=== PATIENT | male | born 1945 | race Caucasian/White ===

== ENCOUNTER 2022-07-02 11:13 | Emergency (ER) | payer MEDICARE, SELFPAY ==
[2022-07-02 11:22] VITALS: BP 131/67; PULSE 95; RESP 16; TEMP 36.3; O2SAT 98
--- NOTE | 2022-07-02 11:23 | ED.WOUNDLAC ---
HPI - Wound/Laceration General Chief Complaint: Wound/Laceration Stated Complaint: Laceration to Finger Time Seen by Provider: 07/02/22 11:28 Source: patient and RN notes reviewed Mode of arrival: ambulatory Limitations: no limitations History of Present Illness HPI narrative: 76-year-old male presents with concern for laceration to the 2nd digit of his right hand. Reports prior to arrival he was using a drill when it slipped and he lacerated his finger. He denies decreased strength, sensation, range of motion the digit. He is not up to date on his tetanus vaccination Related Data Home Medications Medication Instructions Recorded Confirmed atorvastatin 20 mg tablet 20 mg PO DAILY 07/02/22 07/02/22 latanoprost 0.005 % eye drops 1 drp EACH EYE QHS 07/02/22 07/02/22 warfarin 7.5 mg tablet 7.5 mg PO DAILY 07/02/22 07/02/22 Allergies Allergy/AdvReac Type Severity Reaction Status Date / Time No Known Allergies Allergy Verified 07/02/22 11:34 Review of Systems Review of Systems: CONSTITUTIONAL: Denies malaise, chills, sweats, or fever. SKIN: Reports laceration 2nd digit of the right MUSCULOSKELETAL: Denies muscle skeletal pain NEUROLOGIC: Denies numbness, weakness All systems reviewed & are unremarkable except as noted in HPI and below PMFSH Comments At time of signature, agree with nursing past medical, surgical, social and family history. There is no relevant family history pertinent to the presenting complaint Exam Narrative: GENERAL: Well-appearing, well-nourished, and in no acute distress. HEAD: Normocephalic EYES: PERRLA, conjunctivae clear NECK: Supple. CHEST: Speaks in full sentences. No respiratory distress. HEART: Regular rate and rhythm. Normal and equal peripheral pulses. EXTREMITIES: 2nd digit of right hand has normal strength and sensation. 5/5 strength with digit flexion, extension. Range of motion normal. No clubbing, cyanosis, or edema noted. No general digit tenderness. Normal digital cascade with flexion of fingers, median, ulnar and radial nerve intact. Normal sensation of each side of finger. Can perform 'okay' sign, 'cross over finger test of index and middle fingers' and 'thumbs up' sign. No scissoring. Normal thumb opposition. Good capillary refill and radial pulse. Distal capillary refill less than 3 seconds. Patient is right/left hand dominant SKIN: Warn, dry, intact, pink. 2.5 cm C-shaped laceration through the subcutaneous tissue noted between the time he MIP joint on the dorsal aspect of the 2nd digit of the right hand NEURO: Alert and oriented x3. PSYCH: Normal mood and affect Course Course Emergency Course: Patient is aware of diagnosis, understands and agrees to treatment plan. Anticipatory guidance given. Patient agrees to follow-up as directed and is aware of reasons to seek care at the emergency department. Portions of this record may have been created with voice recognition software Level of Care: Express Care Visit Vital Signs Vital signs: Reviewed. Procedures Laceration Laceration 1: Date: 07/02/22 Time: 11:35 Site: hand Side (If applicable): right Size (cm): 2.5 Description: irregular Depth: simple, single layer Local Anesthetic: lidocaine 1% Amount of anesthesia used (mL): 2 ====== Skin Level ====== Skin layer closed with: nylon Size (cm): 5-0 Number of sutures: 7 Technique: simple, interrupted ====== Subcutaneous Layer ====== ====== Muscle Layer ====== ====== Tendon Layer ====== MDM - Wound/Laceration MDM Narrative Medical decision making narrative: Wound explored for foreign body and copious irrigation provided with no evidence of FB. Discussed the potential of retained foreign body with the patient and signs/symptoms that should prompt the patient to immediately go to the ED for reevaluation. The laceration was then irrigated with 500cc of high-press
[2022-07-02 11:34] VITALS: BP 131/67; PULSE 95; RESP 16; TEMP 36.3; O2SAT 98
[2022-07-02] MEDS: TETANUS,DIPHTHERIA,AC PERTUSSIS ADULT (0.5 ML) BOOSTRIX IM (11:38)
== END 2022-07-02 12:05 | disposition home or self-care (01) ==
PROVIDERS: Emergency Provider Nurse Practitioner; PCP Family Medicine
DX: S61.210A Laceration without foreign body of right index finger without damage to nail, initial encounter (principal); Z23 Encounter for immunization; W29.8XXA Contact with other powered hand tools and household machinery, initial encounter
CPT/HCPCS: 12001; 90471; 90715; 99212; G0463

== ENCOUNTER 2022-07-11 09:46 | Emergency (ER) | payer MEDICARE, SELFPAY ==
[2022-07-11 09:50] VITALS: BP 126/71; PULSE 72; RESP 20; TEMP 36.4; O2SAT 100
--- NOTE | 2022-07-11 09:52 | ED.WOUNDLAC ---
HPI - Wound/Laceration General Stated Complaint: remove stitches Source: patient Mode of arrival: ambulatory Limitations: no limitations History of Present Illness HPI narrative: 76-year old male here for suture removal. He was here 10 days ago and had 6 sutures placed for his right index finger on 07/02. He denies any pain, swelling to the site, drainage to the site, or fevers Related Data Home Medications Medication Instructions Recorded Confirmed atorvastatin 20 mg tablet 20 mg PO DAILY 07/02/22 07/02/22 latanoprost 0.005 % eye drops 1 drp EACH EYE QHS 07/02/22 07/02/22 warfarin 7.5 mg tablet 7.5 mg PO DAILY 07/02/22 07/02/22 Allergies Allergy/AdvReac Type Severity Reaction Status Date / Time No Known Allergies Allergy Verified 07/02/22 11:34 Review of Systems Review of Systems: CONSTITUTIONAL: Denies body aches, fever, chills, or sweats. CARDIOVASCULAR: Denies chest pain, palpitations, or edema. RESPIRATORY: Denies cough or dyspnea. GASTROINTESTINAL: Denies abdominal pain, nausea, vomiting, or diarrhea. SKIN: Denies redness, drainage, or swelling to the right index finger MUSCULOSKELETAL: Denies back pain, joint pain, or myalgia. NEUROLOGIC: Denies headache, numbness, tingling, or weakness. [facility] Past Medical History Medical History (Updated 07/11/22 @ 10:24 by Lita Hernandez, HILARIA) Atrial fibrillation Facial trauma Comments At time of signature, I have reviewed and agree with nursing past medical, surgical, social and family history unless otherwise noted. Please see nursing chart for further information. There is no relevant family history pertinent to the presenting complaint Exam Narrative: GENERAL: Well-appearing HEAD: Normocephalic, atraumatic. EYES: conjunctivae clear, and EOMI. ENT: Mucous membranes moist. Oropharynx without edema, erythema or lesions. NECK: Supple. No lymphadenopathy CHEST: Clear to auscultation. HEART: Regular rate and rhythm. SKIN: Warm, dry. 6 simple, interrupted sutures in proximal phalanx. Slight erythema, no drainage, no swelling; well approximated wound NEURO: Alert and oriented x3. Course Course Emergency Course: Patient is aware of diagnosis, understands and agrees to treatment plan. Anticipatory guidance given. Patient agrees to follow-up as directed and is aware of reasons to seek care at the emergency department. Portions of this record may have been created with voice recognition software Level of Care: Express Care Visit Vital Signs Vital signs: Reviewed Procedures Other Procedure Procedure 1: Other Procedure: 6 simple interrupted sutures removed without difficulty from right 2nd digit, wound is well approximated, applied steri strips due to tension at site for superficial edges of wound MDM - Wound/Laceration MDM Narrative Medical decision making narrative: Patient nontoxic in appearance and appropriate for outpatient treatment. Advised supportive measures and signs/symptoms to go to the ER. Pt is appropriate for outpt treatment and f/u. Differential Diagnosis Differential diagnosis: Likely laceration Discharge Plan Discharge Clinical Impression: Encounter for removal of sutures Patient Disposition: Home, Self-Care Condition: Stable Instructions: Antibiotic Form Additional Instructions: Steri-Strips will roll off on their own within 14 days Do not soak your wound or submerge the site. Avoid frequent or prolonged contact with water, including heavy perspiration. This may loosen the skin glue before the wound is healed. Keep the area clean and dry - cleanse with warm water and mild soap and allow to fully dry. Watch for worsening symptoms including pain, redness, swelling, streaking, pus/drainage, fever. Go to the ER with any of these symptoms or concerns. Follow up with primary care provider in 1 week as needed. Prescriptions: No Action atorvastatin 20 mg tablet 20 mg PO DAILY warfarin 7.5 mg tabl
[2022-07-11 10:06] VITALS: BP 126/71; PULSE 72; RESP 20; TEMP 36.4; O2SAT 100
== END 2022-07-11 10:16 | disposition home or self-care (01) ==
PROVIDERS: Emergency Provider Nurse Practitioner Family; PCP Family Medicine
DX: Z48.02 Encounter for removal of sutures (principal); I48.91 Unspecified atrial fibrillation
CPT/HCPCS: 99211; G0463